=== PATIENT | female | born 1975 | race Two or more races ===

== ENCOUNTER 2020-07-01 11:28 | Emergency (ER) | payer MEDICAID, MEDICARE, OTHER ==
[~2020-07-01] VITALS: Ht 154.9 cm; Wt 115.7 kg
[~2020-07-01 11:28] MED LIST: AMLO10TA7 PO; CYCL10TA9 PO; DIAZ5TAB4 PO; DICL75TA PO; ERGO500014 PO; GABA-534 PO; GLIP10TA11 PO; LAMO100T2 PO; LISI-603 PO; TOPI100T38 PO
[2020-07-01 11:34] VITALS: BP 151/74
[2020-07-01] MEDS ORDERED: KETOROLAC TROMETHAMINE INJ 60 MG/2 ML VIAL IM ONE ×2 (12:00→12:03)
[2020-07-01] MEDS ORDERED: MORPHINE SULFATE INJ 4 MG/ML DISP.SYRIN IM ONE (12:00)
[2020-07-01] MEDS ORDERED: MORPHINE SULFATE INJ 4 MG/ML DISP.SYRIN ONE (12:02)
--- NOTE | 2020-07-01 12:55 | NUR ---
Patient refused to wait for nausea meds stated feel better her sister is waiting for Dc home asssited to WC to car
--- NOTE | 2020-07-01 12:57 | NUR ---
Patient discharged to home in stable condition. Written and verbal after care instructions given. Patient verbalizes understanding of instruction.
== END 2020-07-01 12:58 | disposition home or self-care (01) ==
LOC: ER 11:30
DX: G89.29 Other chronic pain (principal); R11.2 Nausea with vomiting, unspecified; M54.9 Dorsalgia, unspecified; M79.7 Fibromyalgia; F41.9 Anxiety disorder, unspecified; E11.40 Type 2 diabetes mellitus with diabetic neuropathy, unspecified; I10 Essential (primary) hypertension; Z88.1 Allergy status to other antibiotic agents; Z79.899 Other long term (current) drug therapy
CPT/HCPCS: 96372 ×2; 99284; J1885; J2270

== ENCOUNTER 2021-04-08 15:06 | Emergency (ER) | payer MEDICARE, OTHER ==
[~2021-04-08] VITALS: Ht 165.1 cm; Wt 113.4 kg
[~2021-04-08 15:06] MED LIST changes: +AMLO-213 PO; -AMLO10TA7 PO; -LISI-603 PO; +LISI20TA30 PO
--- NOTE | 2021-04-08 15:20 | NUR ---
c/o lower back pain x 1 month, 10/10 pain scale. Patient a/ox4, breathing even and unlabored, no sob noted. Needs attended.
[2021-04-08] MEDS ORDERED: KETOROLAC TROMETHAMINE INJ 30 MG/ML VIAL IV ONE (15:30)
[2021-04-08] MEDS ORDERED: KETOROLAC TROMETHAMINE 15 MG/ML VIAL ONE (15:36)
--- NOTE | 2021-04-08 15:51 | NUR ---
US COMPLETED. PATIENT WENT TO RESTROOM.
[2021-04-08 15:53] LABS: BASOPHILS # (AUTO) 0.1 /CMM (0.0-0.2); HEMOGLOBIN 10.9 g/dL (11.5-14.8)
--- NOTE | 2021-04-08 15:54 | NUR ---
URINE SENT TO LAB
[2021-04-08 15:56] LABS: BASOPHILS % (AUTO) 0.6 % (0.0-2.0); EOSINOPHILS % (AUTO) 1.3 % (0.0-6.0); HEMATOCRIT 34 % (33-45); LYMPHOCYTES # (AUTO) 1.7 /CMM (0.8-4.8); LYMPHOCYTES % (AUTO) 15.5 % (20.0-44.0); MEAN CORPUSCULAR HGB CONC 32 g/dl (31.0-36.0); MEAN CORPUSCULAR VOLUME 66 fL (82-100); MONOCYTES # (AUTO) 0.6 /CMM (0.1-1.30); MONOCYTES % (AUTO) 5.1 % (2.0-12.0); NEUTROPHILS # (AUTO) 8.6 /CMM (1.8-8.9); NEUTROPHILS % (AUTO) 77.5 % (43.0-81.0); PLATELET COUNT (AUTO) 416 /CMM (150-450); WHITE BLOOD COUNT (AUTO) 11.1 K/uL (4.3-11.0)
[2021-04-08 16:02] LABS: BILIRUBIN,URINE Negative (NEGATIVE); COLOR,URINE YELLOW (YELLOW); LEUKOCYTE ESTERASE ,URINE Negative (NEGATIVE); NITRITE, URINE Negative (NEGATIVE); PH,URINE 5.5 (5.0-8.0); PROTEIN,URINE Negative (NEGATIVE); UGLUCOSE 500 MG/DL mg/dL (NEGATIVE); UROBILINOGEN,URINE 0.2 EU/dL (0.2)
[2021-04-08 16:11] LABS: ALBUMIN 3.7 g/dL (3.4-5.0); BILIRUBIN,DIRECT 0.1 mg/dL (0.0-0.2); BILIRUBIN,TOTAL 0.3 mg/dL (0.2-1.0); CALCIUM, SERUM 9.3 mg/dL (8.5-10.1); CREATININE 0.9 mg/dL (0.6-1.3); POTASSIUM 3.9 mmol/L (3.5-5.1); TOTAL PROTEIN, SERUM 7.5 g/dL (6.4-8.2)
[2021-04-08] MEDS ORDERED: IV NS 0.9% 1,000 ML IV ONE (16:30)
[2021-04-08] MEDS ORDERED: DICL50TA7 PO (16:32)
[2021-04-08] MEDS ORDERED: FLUC150T PO (16:33)
[2021-04-08 16:35] LABS: LYMPHOCYTES % (MANUAL) 19 % (16-48); MONOCYTES % (MANUAL) 3 % (0-11.0); NEUTROPHILS % (MANUAL) 78 (42-76)
[2021-04-08] MEDS ORDERED: ONDANSETRON HCL/PF 4 MG/2 ML VIAL ONE (16:42)
[2021-04-08] MEDS ORDERED: MORPHINE SULFATE INJ 2 MG/ML DISP.SYRIN ONE (16:42)
[2021-04-08] MEDS ORDERED: MORPHINE SULFATE INJ 2 MG/ML DISP.SYRIN IV ONE (17:00)
[2021-04-08] MEDS ORDERED: ONDANSETRON HCL/PF - ER 4 MG/2 ML VIAL IV ONE (17:00)
--- NOTE | 2021-04-08 17:32 | NUR ---
Patient a/ox4, breathing even and unlabored, no sob noted. Needs attended. IV removed. Catheter intact and site benign. Pressure and 4x4 applied to site. No bleeding noted.Patient discharged to home in stable condition. Written and verbal after care instructions given. Patient verbalizes understanding of instruction.
[2021-04-08 17:33] VITALS: BP 127/73
== END 2021-04-08 17:33 | disposition home or self-care (01) ==
LOC: ER 15:10
DX: G89.29 Other chronic pain (principal); M54.5 Low back pain; E11.65 Type 2 diabetes mellitus with hyperglycemia; B37.3 Candidiasis of vulva and vagina; K76.0 Fatty (change of) liver, not elsewhere classified; D64.9 Anemia, unspecified; E11.40 Type 2 diabetes mellitus with diabetic neuropathy, unspecified; I10 Essential (primary) hypertension; F32.9 Major depressive disorder, single episode, unspecified; K21.9 Gastro-esophageal reflux disease without esophagitis; F41.9 Anxiety disorder, unspecified; M06.9 Rheumatoid arthritis, unspecified; M79.7 Fibromyalgia; Z98.890 Other specified postprocedural states; Z88.1 Allergy status to other antibiotic agents; Z88.8 Allergy status to other drugs, medicaments and biological substances; Z79.899 Other long term (current) drug therapy
CPT/HCPCS: 36415; 76705; 80048; 80076; 81003; 82962; 83690; 84703; 85007; 85025; 96361; 96374; 96375; 99284; J1885; J2270; J2405 ×2; J7030

== ENCOUNTER 2021-04-22 22:02 | Emergency (ER) | payer OTHER ==
[~2021-04-22] VITALS: Ht 165.1 cm; Wt 108.9 kg
[~2021-04-22 22:02] MED LIST changes: +DICL50TA7 PO; +FLUC150T PO
[2021-04-22 23:30] VITALS: BP 137/64
[2021-04-23] MEDS ORDERED: ONDA4TAB11 PO (00:08)
[2021-04-23] MEDS ORDERED: TRAM50TA2 PO (00:08)
[2021-04-23] MEDS ORDERED: MORPHINE SULFATE INJ 4 MG/ML DISP.SYRIN ONE (00:21)
[2021-04-23] MEDS ORDERED: KETOROLAC TROMETHAMINE INJ 60 MG/2 ML VIAL IM ONE ×2 (00:21→00:30)
[2021-04-23] MEDS ORDERED: ONDANSETRON HCL/PF 4 MG/2 ML VIAL ONE (00:21)
[2021-04-23] MEDS ORDERED: MORPHINE SULFATE INJ 4 MG/ML DISP.SYRIN IM ONE (00:30)
[2021-04-23] MEDS ORDERED: ONDANSETRON HCL/PF - ER 4 MG/2 ML VIAL IM ONE (00:30)
--- NOTE | 2021-04-23 00:32 | NUR ---
PATIENT CALLED DAUGHTER TO PICK HER UP.
--- NOTE | 2021-04-23 00:45 | NUR ---
Patient discharged to home in stable condition. Written and verbal after care instructions given. Patient verbalizes understanding of instruction.
== END 2021-04-23 00:58 | disposition home or self-care (01) ==
LOC: ER 22:03
DX: M54.5 Low back pain (principal); G89.29 Other chronic pain; E11.9 Type 2 diabetes mellitus without complications; E78.5 Hyperlipidemia, unspecified; I10 Essential (primary) hypertension; F32.9 Major depressive disorder, single episode, unspecified; Z88.1 Allergy status to other antibiotic agents; Z88.8 Allergy status to other drugs, medicaments and biological substances; Z79.899 Other long term (current) drug therapy
CPT/HCPCS: 96372 ×2; 99284; J1885; J2270; J2405 ×2

== ENCOUNTER 2021-05-11 22:46 | Emergency (ER) | payer OTHER ==
[~2021-05-11] VITALS: Ht 165.1 cm; Wt 116.1 kg
[2021-05-11 22:46] VITALS: BP 138/54
[~2021-05-11 22:46] MED LIST changes: +ONDA4TAB11 PO; +TRAM50TA2 PO
--- NOTE | 2021-05-11 23:06 | NUR ---
BS 325
[2021-05-12 00:18] LABS: CALCIUM, SERUM 8.9 mg/dL (8.5-10.1); CREATININE 0.8 mg/dL (0.6-1.3); POTASSIUM 3.9 mmol/L (3.5-5.1)
[2021-05-12] MEDS ORDERED: INSULIN REGULAR, HUMAN 100 UNIT/ML 10 ML VIAL SQ ONE (01:00)
--- NOTE | 2021-05-12 01:29 | NUR ---
Patient discharged to home in stable condition. Written and verbal after care instructions given. Patient verbalizes understanding of instruction.
== END 2021-05-12 01:30 | disposition home or self-care (01) ==
LOC: ER 22:46
DX: H53.8 Other visual disturbances (principal); H43.393 Other vitreous opacities, bilateral; E11.65 Type 2 diabetes mellitus with hyperglycemia; I10 Essential (primary) hypertension; E78.5 Hyperlipidemia, unspecified; G89.29 Other chronic pain; F32.9 Major depressive disorder, single episode, unspecified; E11.40 Type 2 diabetes mellitus with diabetic neuropathy, unspecified; M06.9 Rheumatoid arthritis, unspecified; M79.7 Fibromyalgia; Z88.1 Allergy status to other antibiotic agents; Z88.8 Allergy status to other drugs, medicaments and biological substances; Z79.899 Other long term (current) drug therapy; Z79.84 Long term (current) use of oral hypoglycemic drugs
CPT/HCPCS: 36415; 80048-TC; 82962-TC

== ENCOUNTER 2021-10-25 18:18 | Emergency (ER) | payer OTHER ==
[~2021-10-25] VITALS: Ht 165.1 cm; Wt 123.8 kg
--- NOTE | 2021-10-25 18:18 | NUR ---
PT BIB SELF C.O TRIPPED/FELL GOING DOWN THE STAIRS,PAIN AND INJURY LEFT HAND AND LEFT SIDE OF THE BODY. PT IS AAOX4, NOT IN RESPIRATORY DISTRESS, V/S STABLE, KEPT RESTED AND COMFORTABLE. WILL CONTINUE TO MONITOR.
--- NOTE | 2021-10-25 18:35 | NUR ---
TO ER BED 2 AWAITING MD DICKINSON
--- NOTE | 2021-10-25 18:48 | NUR ---
PT IS WHEELED TO RADIOLOGY FOR XRAY.
[2021-10-25] MEDS ORDERED: TRAMADOL HCL 50 MG TABLET PO ONE (19:00)
[2021-10-25] MEDS ORDERED: TRAMADOL HCL 50 MG TABLET ONE (19:18)
--- NOTE | 2021-10-25 19:28 | NUR ---
RECIEVED REPORT FOR CYNTHIA. PT AWAKE AND ALERT BREATHING EVEN AND UNLABORED. ALL VITALS STABLE AT THIS TIME.
[2021-10-25] MEDS ORDERED: TRAM50TA2 PO (19:32)
[2021-10-25] MEDS ORDERED: IBUP-1955 PO (19:32)
--- NOTE | 2021-10-25 21:16 | NUR ---
Patient discharged to home in stable condition. Written and verbal after care instructions given. Patient verbalizes understanding of instruction.
[2021-10-25 21:23] VITALS: BP 135/60
== END 2021-10-25 21:18 | disposition home or self-care (01) ==
LOC: ER 18:25
DX: M25.532 Pain in left wrist (principal); S60.222A Contusion of left hand, initial encounter; M54.50 Low back pain, unspecified; M25.562 Pain in left knee; G89.29 Other chronic pain; R07.81 Pleurodynia; E11.40 Type 2 diabetes mellitus with diabetic neuropathy, unspecified; I10 Essential (primary) hypertension; E78.5 Hyperlipidemia, unspecified; M79.7 Fibromyalgia; F32.9 Major depressive disorder, single episode, unspecified; M06.9 Rheumatoid arthritis, unspecified; Z88.1 Allergy status to other antibiotic agents; Z88.8 Allergy status to other drugs, medicaments and biological substances; Z79.899 Other long term (current) drug therapy; W19.XXXA Unspecified fall, initial encounter; Y93.89 Activity, other specified; Y92.89 Other specified places as the place of occurrence of the external cause; Y99.8 Other external cause status
CPT/HCPCS: 29125; 71100; 72100; 73110; 73130; 73564; 99284; A6403

== ENCOUNTER 2023-06-24 01:53 | Emergency (ER) | payer OTHER ==
[~2023-06-24] VITALS: Ht 165.1 cm; Wt 114.8 kg
[~2023-06-24 01:53] MED LIST changes: +IBUP-1955 PO
[2023-06-24 02:37] VITALS: BP 130/85; TEMP 98.3; O2SAT 99
--- NOTE | 2023-06-24 02:37 | NUR ---
BIBSELF FROM HOME C/O GEN BODY ACHE X3 DAYS. HX FIBROMYALGIA
--- NOTE | 2023-06-24 02:43 | NUR ---
URINE SAMPLE COLLECTED AND SENT TO LAB.
[2023-06-24] MEDS ORDERED: KETOROLAC TROMETHAMINE INJ 30 MG/ML VIAL ONE (02:44)
[2023-06-24] MEDS ORDERED: MORPHINE SULFATE INJ 4 MG/ML DISP.SYRIN ONE (02:44)
[2023-06-24] MEDS ORDERED: MORPHINE SULFATE INJ 2 MG/ML DISP.SYRIN IM ONE (03:00)
[2023-06-24] MEDS ORDERED: KETOROLAC TROMETHAMINE INJ 60 MG/2 ML VIAL IM ONE (03:00)
[2023-06-24] MEDS ORDERED: CYCL5TAB PO (03:36)
--- NOTE | 2023-06-24 03:46 | NUR ---
Patient discharged to home in stable condition. Written and verbal after care instructions given. Patient verbalizes understanding of instruction.
== END 2023-06-24 03:47 | disposition home or self-care (01) ==
LOC: ER 01:58
DX: G89.29 Other chronic pain (principal); M54.50 Low back pain, unspecified; E11.40 Type 2 diabetes mellitus with diabetic neuropathy, unspecified; I10 Essential (primary) hypertension; E78.5 Hyperlipidemia, unspecified; E11.9 Type 2 diabetes mellitus without complications; F32.A Depression, unspecified; Z79.899 Other long term (current) drug therapy; Z88.1 Allergy status to other antibiotic agents
CPT/HCPCS: 99284; 96372 ×2; J2270; J1885